=== PATIENT | male | born 1995 | race African-American/Black ===

== ENCOUNTER 2020-01-17 23:38 | Emergency (ER) | payer SELFPAY ==
[~2020-01-17] VITALS: Ht 182.9 cm; Wt 90.7 kg
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
[2020-01-17 23:50] VITALS: BP 125/63
[2020-01-18] VITALS: BP 135/79
[2020-01-18] MEDS ORDERED: Lidocaine 1% Plain 30 ml INJ ONE ×4 (00:03→00:45)
[2020-01-18] MEDS ORDERED: fentaNYL 100 mcg/2 mL IV ONE ×2 (00:13→00:45)
[2020-01-18 00:15] VITALS: BP 147/79
[2020-01-18 00:35] VITALS: BP 147/79
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
== END 2020-01-18 00:35 | disposition short-term general hospital (02) ==
LOC: EMR 23:44
DX: S21.101A Unspecified open wound of right front wall of thorax without penetration into thoracic cavity, initial encounter (principal); S41.101A Unspecified open wound of right upper arm, initial encounter; W34.00XA Accidental discharge from unspecified firearms or gun, initial encounter; Y92.9 Unspecified place or not applicable; R06.02 Shortness of breath; R07.9 Chest pain, unspecified
CPT/HCPCS: 32556; 71045; 96374; 99291; J2001; J3010